=== PATIENT | female | born 1990 | race Two or more races ===

== ENCOUNTER 2024-01-23 11:31 | Emergency (ER) | payer MEDICAID ==
[~2024-01-23] VITALS: Ht 167.6 cm; Wt 98.6 kg
[2024-01-23 12:50] VITALS: BP 128/77; PULSE 104; RESP 18; TEMP 98.2; O2SAT 96
[2024-01-23] MEDS ORDERED: ACET-1080 PO (12:55)
== END 2024-01-23 13:06 | disposition home or self-care (01) ==
LOC: ER 11:31
DX: O9A.212 Injury, poisoning and certain other consequences of external causes complicating pregnancy, second trimester (principal); S39.012A Strain of muscle, fascia and tendon of lower back, initial encounter; Z3A.15 15 weeks gestation of pregnancy; Z88.8 Allergy status to other drugs, medicaments and biological substances; Z79.899 Other long term (current) drug therapy; W01.0XXA Fall on same level from slipping, tripping and stumbling without subsequent striking against object, initial encounter; Y93.89 Activity, other specified; Y92.89 Other specified places as the place of occurrence of the external cause; Y99.8 Other external cause status
CPT/HCPCS: 76805

== ENCOUNTER 2024-02-16 09:56 | Observation (INO) | payer MEDICAID ==
[~2024-02-16] VITALS: Ht 167.6 cm; Wt 101.6 kg
[~2024-02-16 09:56] MED LIST: ACET-1080 PO
[2024-02-16 10:23] VITALS: BP 133/78; PULSE 107; RESP 16; O2SAT 97
[2024-02-16 11:12] LABS: Basophils # (auto) 0 10 ^3/uL (0-0.2); Basophils % (auto) 0.2 % (0.0-2.0); Eosinophils # (auto) 0 10 ^3/uL (0-0.8); Eosinophils % (auto) 0.2 % (0.0-7.0); Hematocrit 39.9 % (36.0-46.0); Hemoglobin 13.8 g/dL (12.2-16.2); Lymphocytes # (auto) 2.2 10 ^3/uL (0.4-5.4); Lymphocytes % (auto) 20.2 % (10.0-50.0); Mean Corpuscular Hemoglobin 31.8 pg (28.0-32.0); Mean Corpuscular Hgb Conc. 34.6 g/dL (32.0-36.0); Mean Corpuscular Volume 91.8 fL (80.0-100.0); Monocytes # (auto) 0.8 10 ^3/uL (0-1.3); Monocytes % (auto) 6.9 % (0.0-12.0); Neutrophils # (auto) 7.9 10 ^3/uL (1.6-8.6); Neutrophils % (auto) 72.5 % (37.0-80.0); Nucleated Red Blood Cells % 0.1 %; Red Blood Cells 4.35 10^6/uL (4.0-5.20); Red Cell Distribution Width 13.3 % (11.8-14.3); White Blood Cell 10.9 10^3/uL (4.4-10.8)
== END 2024-02-16 12:45 | disposition home or self-care (01) ==
LOC: ER 09:56 → LDRP 10:25 → ER 11:30 → UNDOADMOB 11:30 → UNDODISOB 12:45
PROVIDERS: ADMIT Obstetrics & Gynecology; ATTEND Obstetrics & Gynecology
DX: O20.0 Threatened abortion (principal); M54.50 Low back pain, unspecified; Z3A.18 18 weeks gestation of pregnancy; Z88.0 Allergy status to penicillin; Z88.8 Allergy status to other drugs, medicaments and biological substances
CPT/HCPCS: 36415; 76805; 76817; 81002; 84702; 85025; 94760; 99284; G0378